=== PATIENT | female | born 1945 | race Caucasian/White ===

== ENCOUNTER → 2017-05-30 | Outpatient (CLI) | payer MEDICARE, OTHER ==
--- NOTE | 2017-06-01 09:25 | MM ---
Reason for exam: screening (asymptomatic). Last mammogram was performed 2 years and 2 months ago. History: Patient is postmenopausal. Family history of breast cancer in sister at age 66. Physical Findings: A clinical breast exam by your physician is recommended on an annual basis and results should be correlated with mammographic findings. MG 3D Screening Mammo W/Cad Bilateral CC and MLO view(s) were taken. Prior study comparison: March 17, 2015, mammogram. May 23, 2011, mammogram. The breast tissue is heterogeneously dense. This may lower the sensitivity of mammography. Finding: There are round, grouped/clustered calcifications in the posterior position on MLO view. New finding since March 17, 2015, and May 23, 2011. ASSESSMENT: Incomplete: need additional imaging evaluation, BI-RAD 0 RECOMMENDATION: Special view mammogram of the right breast. [facility] will attempt to contact patient to return for supplemental views.
== END | disposition home or self-care (01) ==
LOC: RADMAMWWP 12:16
PROVIDERS: ATTEND Family Medicine
DX: Z12.31 Encounter for screening mammogram for malignant neoplasm of breast (principal)
CPT/HCPCS: 77063; 77067

== ENCOUNTER 2017-06-08 08:52 | Outpatient (CLI) | payer MEDICARE, OTHER | END 2017-06-13 | disposition home or self-care (01) | LOC: CANPRECLI → RADMAMWWP 06-13 09:34 | PROVIDERS: ATTEND Family Medicine | DX: Z53.9 Procedure and treatment not carried out, unspecified reason (principal) ==

== ENCOUNTER → 2018-10-11 | Outpatient (CLI) | payer MEDICARE, OTHER ==
--- NOTE | 2018-10-11 11:42 | XR ---
EXAMINATION TYPE: XR cervical spine limited DATE OF EXAM: 10/11/2018 COMPARISON: NONE HISTORY: Chronic neck pain TECHNIQUE: 3 views are submitted. FINDINGS: The odontoid is intact. There are no compression deformities. The prevertebral soft tissue structur es are within normal limits. There is multilevel degenerative disc disease with most marked changes at C5-6 and C6-C7. There is a retrolisthesis of 3 mm of C5 relative to C6. There is multilevel signif icant facet arthropathy. Calcifications in the soft tissue the neck likely related carotid artery ath erosclerotic changes. IMPRESSION: 1. Multilevel degenerative disc disease and facet arthropathy with a 3 mm retrolisthesis of C5 and C6 likely result in canal stenosis. Recommend MRI..
== END | disposition home or self-care (01) ==
LOC: RADXRMAIN 11:14
PROVIDERS: ATTEND Family Medicine
DX: M43.12 Spondylolisthesis, cervical region (principal); M50.322 Other cervical disc degeneration at C5-C6 level; M46.82 Other specified inflammatory spondylopathies, cervical region
CPT/HCPCS: 72040

== ENCOUNTER → 2018-11-06 | Outpatient (CLI) | payer MEDICARE, OTHER ==
--- NOTE | 2018-11-07 02:02 | MR ---
EXAMINATION TYPE: MR cervical spine wo con DATE OF EXAM: 11/06/2018 COMPARISON: None HISTORY: Neck pain, headaches for several years. No hx trauma/surgery TECHNIQUE: Multiplanar, multisequence images of the cervical spine were acquired. Cervical vertebra have fairly normal alignment. There is a few millimeter retrolisthesis at C5-6. The re is degenerative disc space narrowing from C4 to C7 with spurring of the endplates. Cervical spinal cord has normal signal pattern. There is no edema. There is no compression fracture. There is no significant narrowing of the spinal canal. Spinal canal measures 9 mm at the narrowest po int. Brainstem is intact. The posterior elements are intact. There is hypertrophic multilevel cervical fac et arthropathy. There is no cervical paraspinal mass. IMPRESSION: No fracture. No spinal stenosis. 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 Mild degene rative retrolisthesis at C5-6.
--- NOTE | 2018-11-11 07:58 | MM ---
Reason for exam: screening (asymptomatic). Last mammogram was performed 1 year and 5 months ago. History: Patient is postmenopausal. Family history of breast cancer in sister at age 66. Physical Findings: A clinical breast exam by your physician is recommended on an annual basis and results should be correlated with mammographic findings. MG 3D Screening Mammo W/Cad Bilateral CC and MLO view(s) were taken. Prior study comparison: May 30, 2017, bilateral MG 3d screening mammo w/cad. March 17, 2015, mammogram. The breast tissue is heterogeneously dense. This may lower the sensitivity of mammography. Redemonstrated grouped round and punctate calcifications far posterior and central right MLO view, medial on 3D images. Calcifications may have minimally increased. ASSESSMENT: Incomplete: need additional imaging evaluation, BI-RAD 0 RECOMMENDATION: Special view mammogram of the right breast.
== END | disposition home or self-care (01) ==
LOC: RADMAMWWP 16:47
PROVIDERS: ATTEND Family Medicine
DX: M43.12 Spondylolisthesis, cervical region (principal); M47.812 Spondylosis without myelopathy or radiculopathy, cervical region; Z12.31 Encounter for screening mammogram for malignant neoplasm of breast
CPT/HCPCS: 72141; 77063; 77067

== ENCOUNTER → 2019-01-15 | Outpatient (CLI) | payer MEDICARE, OTHER ==
--- NOTE | 2019-01-15 14:47 | MM ---
Reason for exam: additional evaluation requested from abnormal screening. Last mammogram was performed 2 months ago. History: Patient is postmenopausal. Family history of breast cancer in sister at age 66. Physical Findings: Nurse did not find any significant physical abnormalities on exam. MG 3D Work Up W/Cad RT LM and XCCM view(s) were taken of the right breast. Prior study comparison: November 06, 2018, bilateral MG 3d screening mammo w/cad. May 30, 2017, bilateral MG 3d screening mammo w/cad. The breast tissue is heterogeneously dense. This may lower the sensitivity of mammography. There are skin calcifications on the first image on the LM view in the superior right breast. No suspicious abnormality. These results were verbally communicated with the patient and result sheet given to the patient on 01/15/19. ASSESSMENT: Benign, BI-RAD 2 RECOMMENDATION: Return to routine screening mammogram schedule for both breasts.
== END ==
LOC: RADMAMWWP 13:36
PROVIDERS: ATTEND Family Medicine
DX: Z53.9 Procedure and treatment not carried out, unspecified reason (principal)

== ENCOUNTER 2021-09-14 21:20 | Emergency (ER) | payer MEDICARE, OTHER ==
[2021-09-14 21:38] VITALS: BP 117/67; PULSE 75; RESP 16; TEMP 98
[2021-09-14 22:08] LABS: Basophils # (A) 0.1 k/uL (0-0.2); Basophils % (A) 2 %; Eosinophils # (A) 0.1 k/uL (0-0.7); Eosinophils % (A) 4 %; HCT 41.4 % (34.0-46.0); HGB 13.2 gm/dL (11.4-16.0); Lymphocytes # (A) 1.4 k/uL (1.0-4.8); Lymphocytes % (A) 36 %; MCH 34.1 pg (25.0-35.0); MCHC 31.8 g/dL (31.0-37.0); MCV 107.1 fL (80.0-100.0); Macrocytosis Moderate; Mean Platelet Volume 6.6; Monocytes # (A) 0.2 k/uL (0-1.0); Monocytes % (A) 5 %; Neutrophils % (A) 50 %; Platelet Count 304 k/uL (150-450); RBC 3.87 m/uL (3.80-5.40); RDW 13.4 % (11.5-15.5); WBC 3.9 k/uL (3.8-10.6)
[2021-09-14 22:22] LABS: ALT 17 U/L (4-34); AST 32 U/L (14-36); African American GFR (CKD) >90 (>60 ml/min/1.73 sqM); Albumin 4.4 g/dL (3.5-5.0); Alkaline Phosphatase 64 U/L (38-126); Anion Gap 10 mmol/L; Blood Urea Nitrogen 21 mg/dL (7-17); Calcium 10.2 mg/dL (8.4-10.2); Carbon Dioxide 20 mmol/L (22-30); Chloride 108 mmol/L (98-107); Glucose 97 mg/dL (74-99); Non-African American GFR(CKD) 84 (>60 ml/min/1.73 sqM); Potassium 4.3 mmol/L (3.5-5.1); Sodium 138 mmol/L (137-145); Total Bilirubin 0.4 mg/dL (0.2-1.3); Total Protein 6.7 g/dL (6.3-8.2)
== END 2021-09-14 23:30 | disposition left against medical advice (07) ==
LOC: EC 21:20
DX: Z53.21 Procedure and treatment not carried out due to patient leaving prior to being seen by health care provider (principal)
CPT/HCPCS: 36415; 80053; 84484; 85025; 99499

== ENCOUNTER → 2021-12-30 | Outpatient (CLI) | payer MEDICARE, OTHER ==
--- NOTE | 2021-12-30 15:54 | MR ---
EXAMINATION TYPE: MR brain wo con DATE OF EXAM: 12/30/2021 3:13 PM COMPARISON: None. CLINICAL INDICATION:Female, 76 years old with history of I67.9 CEREBROVASCULAR DISEASE, UNSPECIFIED TECHNIQUE: Multi planar, multi sequence imaging was performed through the brain including: T1, T2, In version recovery, Diffusion weighted imaging, and gradient echo imaging. No gadolinium was given. FINDINGS: The ash-white junctions, ventricular system, and cisterns appear unremarkable. Minimal generalized atrophy of the brain. Remote right basal ganglia lacunar injuries Patchy areas of high T2 signal inte nsity are seen within the periventricular white matter. Midline structures show no abnormality. Diffu clemente-weighted imaging shows no evidence of restricted diffusion. The bone marrow signal is within normal limits. The paranasal sinuses and globes are unremarkable. IMPRESSION: 1. No evidence of intracranial mass or acute/subacute infarct. 2. Mild Generalized atrophy changes 3. Remote right basal ganglia lacunar injury along with nonspecific white matter changes, likely seco ndary to small vessel ischemic disease.
== END | disposition home or self-care (01) ==
LOC: RADMRIMAIN 14:12
PROVIDERS: ATTEND Psychiatry & Neurology Neurology
DX: I67.9 Cerebrovascular disease, unspecified (principal)
CPT/HCPCS: 70551